=== PATIENT | female | born 1990 | race Caucasian/White ===

== ENCOUNTER 2016-10-16 15:31 | Emergency (ER) | payer OTHER ==
[2016-10-16 18:48] VITALS: BP 130/74
--- NOTE | 2016-10-16 19:25 | UC ---
Throat Pain/Nasal David HPI - HPI Summary HPI Summary: 20 WEEKS , FOR ONE WEEK HAS HAD WORSENING SINUS CONGESTION AND PRESSURE. FEVER YESTERDAY. COUGH AT NIGHT, TEETH HURT FROM FACIAL PAIN. WORSE THE LAST 3 DAYS - History of Current Complaint Chief Complaint: UCRespiratory Stated Complaint: SINUSES Time Seen by Provider: 10/16/16 18:44 Hx Obtained From: Patient Hx Last Menstrual Period: 05/13/16 Onset/Duration: Gradual Onset, Lasting Weeks, Worse Since - 3 DAYS Severity: Moderate Pain Intensity: 6 Pain Scale Used: 0-10 Numeric Cough: Nonproductive Associated Signs & Symptoms: Positive: Sinus Discomfort, Nasal Discharge, Fever - Allergies/Home Medications Allergies/Adverse Reactions: Allergies Allergy/AdvReac Type Severity Reaction Status Date / Time No Known Allergies Allergy Verified 10/16/16 18:22 Home Medications: Home Medications Acetaminophen TAB* [Tylenol TAB*] 650 mg PO Q4H PRN 10/16/16 [History Confirmed 10/16/16] Calcium Carbonate CHEW TAB* [Tums*] 500 mg PO BID PRN 10/16/16 [History Confirmed 10/16/16] Vitamin [Calna] 1 tab PO DAILY 10/16/16 [History Confirmed 10/16/16] PMH/Surg Hx/FS Hx/Imm Hx Previously Healthy: Yes - Surgical History Surgical History: Yes Surgery Procedure, Year, and Place: T&A. - Family History Known Family History: Negative: Respiratory Disease - Social History Occupation: Employed Full-time Lives: With Family Alcohol Use: None Substance Use Type: None Smoking Status (MU): Never Smoked Tobacco Review of Systems Constitutional: Fever, Chills Skin: Negative Eyes: Negative ENT: Nasal Discharge Respiratory: Cough Cardiovascular: Negative Gastrointestinal: Negative Genitourinary: Negative Motor: Negative Neurovascular: Negative Musculoskeletal: Negative Neurological: Negative Psychological: Negative All Other Systems Reviewed And Are Negative: Yes Physical Exam Triage Information Reviewed: Yes Appearance: Well-Appearing, No Pain Distress, Well-Nourished Vital Signs: Initial Vital Signs Temp 97.9 F 10/16/16 18:24 Pulse 97 10/16/16 18:24 Resp 18 10/16/16 18:24 BP 130/74 10/16/16 18:24 Pulse Ox 100 10/16/16 18:24 Vital Signs Reviewed: Yes Eye Exam: Normal ENT: Positive: Hearing grossly normal, Pharynx normal, Nasal congestion, TM bulging, TM dull Dental Exam: Normal Neck exam: Normal Neck: Positive: Supple, Nontender, No Lymphadenopathy Respiratory Exam: Normal Respiratory: Positive: Chest non-tender, Lungs clear, Normal breath sounds, No respiratory distress, No accessory muscle use Cardiovascular Exam: Normal Cardiovascular: Positive: RRR, No Murmur, Pulses Normal, Brisk Capillary Refill Abdominal Exam: Normal Abdomen Description: Positive: Nontender, No Organomegaly Musculoskeletal Exam: Normal Musculoskeletal: Positive: Strength Intact, ROM Intact Neurological Exam: Normal Psychological Exam: Normal Psychological: Positive: Normal Response To Family Skin Exam: Normal Throat Pain/Nasal Course/Dx - Differential Dx/Diagnosis Differential Diagnosis/HQI/PQRI: Influenza, Laryngitis, Sinusitis, URI Provider Diagnoses: SINUSITIS Discharge - Discharge Plan Condition: Stable Disposition: HOME Prescriptions: Amoxicillin/Clavulanate TAB* [Augmentin TAB 875*] 875 mg PO BID #20 tab Patient Education Materials: Sinusitis (ED) Forms: *Work Release
== END 2016-10-16 19:18 | disposition home or self-care (01) ==
LOC: UCCORT 15:31
DX: O26.892 Other specified pregnancy related conditions, second trimester (principal); Z3A.22 22 weeks gestation of pregnancy; J32.9 Chronic sinusitis, unspecified
CPT/HCPCS: 99212; G0463

== ENCOUNTER 2017-04-24 14:11 | Emergency (ER) | payer OTHER ==
[2017-04-24 15:23] VITALS: BP 142/81
--- NOTE | 2017-04-24 15:57 | UC ---
Breast Complaint - HPI Summary HPI Summary: Pt presents to [facility] with her 3month son. Pt is breast feeding. States x 3 days increase pain at nipple. Pain only with touch, feeding and pumping. Pt states feels like "shards of glass" Pt states nipple slightly red. no breast pain, no breast firmness or erythema. Pt states son has not been latching as well and she noted "white stuff" on his tongue today. Pt did pump - less milk than normal, but pain. No fevers, chills, rash. No cp, sob. No other complaints. No analgesia taken. No warm soaks applied. no complications no abx medications reviewed this visit - pre- - History of Current Complaint Hx Obtained From: Patient Breast Chief Complaint: Pain, Nipple, Right Onset/Duration: Started Days Ago Timing: Lasting Minutes Breast Pain Aggravating Factors: Breast Feeding, Palpation - no pain at rest or untouchged Breast Pain Alleviating Factors: Nothing - nothing taken, applied Breast Associated Signs/Symptoms: Negative - Allergy/Home Medications Allergies/Adverse Reactions: Allergies Allergy/AdvReac Type Severity Reaction Status Date / Time No Known Allergies Allergy Verified 04/24/17 15:20 PMH/Surg Hx/FS Hx/Imm Hx Previously Healthy: Yes - Surgical History Surgical History: Yes Surgery Procedure, Year, and Place: T&A. - Family History Known Family History: Negative: Respiratory Disease - Social History Lives: With Family Alcohol Use: None Substance Use Type: None Smoking Status (MU): Never Smoked Tobacco Review of Systems Constitutional: Negative Skin: Other - right nipple pain with touch, breast feeding Eyes: Negative ENT: Negative Respiratory: Negative Cardiovascular: Negative Gastrointestinal: Negative Genitourinary: Negative Motor: Negative Neurovascular: Negative Musculoskeletal: Negative Neurological: Negative Psychological: Negative All Other Systems Reviewed And Are Negative: Yes Physical Exam Triage Information Reviewed: Yes Completion Of Physical Exam Limited Due To: Altered Mental Status Appearance: Well-Appearing, No Pain Distress, Well-Nourished Vital Signs: Initial Vital Signs Temp 98.4 F 04/24/17 15:17 Pulse 88 04/24/17 15:17 Resp 16 04/24/17 15:17 BP 142/81 04/24/17 15:17 Pulse Ox 100 04/24/17 15:17 Vital Signs Reviewed: Yes Eye Exam: Normal Eyes: Positive: Conjunctiva Clear ENT Exam: Normal ENT: Positive: Normal ENT inspection, Hearing grossly normal, Pharynx normal, TMs normal Dental Exam: Normal Neck exam: Normal Neck: Positive: Supple, Nontender, No Lymphadenopathy Respiratory Exam: Normal Respiratory: Positive: Chest non-tender, Lungs clear, Normal breath sounds, No respiratory distress, No accessory muscle use Cardiovascular Exam: Normal Cardiovascular: Positive: RRR, No Murmur, Pulses Normal Abdominal Exam: Normal Abdomen Description: Positive: Nontender, No Organomegaly, Soft Bowel Sounds: Positive: Present Musculoskeletal Exam: Normal Neurological Exam: Normal Psychological Exam: Normal Skin: Positive: Other - right breast: no breast tissue tenderness, no erythema of breast, no tenderness pt with dry, shiny right nipple. No edema + TTP No drainage no bleeding no mass right nipple increased erythema compared to left Breast Pain Course/Dx - Course Course Of Treatment: Pt with right nipple pain with touch and breast feeding. No pain at rest. No other sx 3 month old present at exam with + oral thrush. recommend topical miconazole - remove visible cream before breast feeding. warm packs - thorough dry. monitor for signs of infection. APAP. locator specialist f/u. return precaution discussed - Diagnoses Provider Diagnoses: Candidiasis of breast Discharge - Discharge Plan Condition: Stable Disposition: HOME Prescriptions: Miconazole TOPICAL CREAM 2%* [Monistat 2%*] 1 applic TOPICAL BID #1 tube Patient Education Materials: Skin Yeast Infection (ED) Referrals: No Primary Care Phys,NOPCP [Primary Care Provider] - Additional Instructions: apply ointment 2 times a day for 10 days wipe excess cream of your nipple before breast feeding okay to apply moist, warm heat to your breast - make sure to pat dry completely stay well hydrated - drink plenty of non-alcoholic, non-caffinated beverages Okay to take tylenol every 6-8 hours for pain Contact your locator specialist doctor to schedule a follow-up appointment this week. Contact your locator specialist or return with increased pain, reddness, firmness to your nipple, fever or other questions or concerns
== END 2017-04-24 16:09 | disposition home or self-care (01) ==
LOC: UCCORT 14:11
DX: B37.2 Candidiasis of skin and nail (principal)
CPT/HCPCS: 99212; G0463

== ENCOUNTER 2017-06-16 08:57 | Emergency (ER) | payer OTHER ==
[2017-06-16 09:44] VITALS: BP 135/84
--- NOTE | 2017-06-16 10:22 | UC ---
Eye Complaint HPI - HPI Summary HPI Summary: bilateral eye redness and discharge no cold sx - History of Current Complaint Chief Complaint: UCEye Stated Complaint: EYE COMPLAINT Time Seen by Provider: 06/16/17 09:53 Hx Obtained From: Patient Hx Last Menstrual Period: unknown, gave 5 months ago Onset/Duration: Gradual Onset, Lasting Days - 1, Still Present Timing: Constant Severity Initially: Moderate Severity Currently: Moderate Pain Intensity: 0 Pain Scale Used: 0-10 Numeric Location of Injury: Conjunctiva Associated Signs And Symptoms: Positive: Drainage (Clear), Drainage (Purulent). Negative: Photophobia, Vision Impairment Bilateral, Vision Impairment Right, Vision Impairment Left, Fever, Swelling - Allergies/Home Medications Allergies/Adverse Reactions: Allergies Allergy/AdvReac Type Severity Reaction Status Date / Time No Known Allergies Allergy Verified 06/16/17 09:43 Home Medications: Home Medications Docosahexaenoic Acid [ Dha] 200 mg PO DAILY 06/16/17 [History Confirmed 06/16/17] Labetalol TAB* [Trandate TAB*] 100 mg PO BID 06/16/17 [History Confirmed ] PMH/Surg Hx/FS Hx/Imm Hx Previously Healthy: Yes - Surgical History Surgical History: Yes Surgery Procedure, Year, and Place: T&A. - Family History Known Family History: Negative: Respiratory Disease - Social History Alcohol Use: None Substance Use Type: None Smoking Status (MU): Never Smoked Tobacco - Immunization History Most Recent Influenza Vaccination: no Review of Systems Constitutional: Negative Skin: Negative Eyes: Drainage, Eye Redness ENT: Negative Respiratory: Negative Cardiovascular: Negative Gastrointestinal: Negative Is Patient Immunocompromised?: No All Other Systems Reviewed And Are Negative: Yes Physical Exam Triage Information Reviewed: Yes Appearance: Well-Appearing, No Pain Distress, Well-Nourished Vital Signs: Initial Vital Signs Temp 97.7 F 06/16/17 09:40 Pulse 64 06/16/17 09:40 Resp 14 06/16/17 09:40 BP 135/84 06/16/17 09:40 Pulse Ox 99 06/16/17 09:40 Vital Signs Reviewed: Yes Eyes: Positive: Conjunctiva Inflamed, Discharge ENT: Positive: Normal ENT inspection, Hearing grossly normal, Pharynx normal Neck: Positive: Supple, Nontender, No Lymphadenopathy Respiratory: Positive: Chest non-tender, Lungs clear, Normal breath sounds Cardiovascular: Positive: RRR, No Murmur, Pulses Normal Eye Complaint Course/Dx - Differential Dx/Diagnosis Provider Diagnoses: conjunctivitis Discharge - Discharge Plan Condition: Stable Disposition: HOME Prescriptions: Tobramycin 0.3% OPHTH.GAGE* 1 drop BOTH EYES Q4H #1 btl Patient Education Materials: Conjunctivitis (ED) Referrals: No Primary Care Phys,NOPCP [Primary Care Provider] - 5 Days
== END 2017-06-16 10:02 | disposition home or self-care (01) ==
LOC: UCCORT 08:57
DX: H10.9 Unspecified conjunctivitis (principal)
CPT/HCPCS: 99212; G0463

== ENCOUNTER 2017-12-20 08:59 | Emergency (ER) | payer OTHER ==
[2017-12-20 09:37] VITALS: BP 145/90
--- NOTE | 2017-12-20 09:52 | UC ---
Throat Pain/Nasal David HPI - HPI Summary HPI Summary: 26 year old female with sore throat. Has history of strep. Having for 1 day. Had strep last month and treated. never changed toothbrush. 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 has had strep in the past and feels this is the same . - History of Current Complaint Chief Complaint: UCRespiratory Stated Complaint: SORE THROAT Time Seen by Provider: 12/20/17 09:38 Hx Obtained From: Patient Hx Last Menstrual Period: 12/20/17 Pain Intensity: 9 - Allergies/Home Medications Allergies/Adverse Reactions: Allergies Allergy/AdvReac Type Severity Reaction Status Date / Time No Known Allergies Allergy Verified 12/20/17 09:30 PMH/Surg Hx/FS Hx/Imm Hx Previously Healthy: Yes - Surgical History Surgical History: Yes Surgery Procedure, Year, and Place: T&A. 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 Lives: With Family Alcohol Use: None Substance Use Type: None Smoking Status (MU): Never Smoked Tobacco - Immunization History Most Recent Influenza Vaccination: no Review of Systems ENT: Sore Throat Is Patient Immunocompromised?: No All Other Systems Reviewed And Are Negative: Yes Physical Exam Triage Information Reviewed: Yes Appearance: Well-Appearing, No Pain Distress, Well-Nourished Vital Signs: Initial Vital Signs Temp 99.2 F 12/20/17 09:31 Pulse 85 12/20/17 09:31 Resp 18 12/20/17 09:31 BP 145/90 12/20/17 09:31 Pulse Ox 100 12/20/17 09:31 Vital Signs Reviewed: Yes Eye Exam: Normal ENT: Positive: Hearing grossly normal, Pharyngeal erythema. Negative: Tonsillar exudate Neck exam: Normal Respiratory Exam: Normal Cardiovascular Exam: Normal Musculoskeletal Exam: Normal Neurological Exam: Normal Psychological Exam: Normal Skin Exam: Normal Throat Pain/Nasal Course/Dx - Course Course Of Treatment: Based on previous history strep, not changing toothbruch, multiple exposures and her request to be treated its no unreasonable to start treatment, change toothbrush, consider probiotics, RTO if any concerns, - Differential Dx/Diagnosis Differential Diagnosis/HQI/PQRI: Peritonsillar Abscess, Pharyngitis, Tonsillitis , URI Provider Diagnoses: strep Pharyngitis Discharge - Sign-Out/Discharge Documenting (check all that apply): Discharge - Discharge Plan Condition: Good Disposition: HOME Prescriptions: Amoxicillin PO (*) [Amoxicillin 500 MG CAP*] 500 mg PO Q12H 10 Days #20 cap Patient Education Materials: Pharyngitis (ED) Referrals: No Primary Care Phys,NOPCP [Primary Care Provider] - 4 Days Additional Instructions: You had a negative strep test but based on your recent exposure, current symptoms we will start treatment. - Billing Disposition and Condition Condition: GOOD Disposition: HOME
== END 2017-12-20 10:04 | disposition home or self-care (01) ==
LOC: UCCORT 08:59
DX: J02.0 Streptococcal pharyngitis (principal); Z20.89 Contact with and (suspected) exposure to other communicable diseases
CPT/HCPCS: 87651; 99212; G0463

== ENCOUNTER 2018-09-16 13:55 | Emergency (ER) | payer OTHER ==
--- NOTE | 2018-09-16 15:35 | UC ---
UC General HPI - HPI Summary HPI Summary: pt c/o fever, bodyaches, sore throat, headache and n/v x 3 yesterday then twice today. no cough, sob, diarrhea or dysuria. - History of Current Complaint Chief Complaint: UCGeneralIllness Stated Complaint: FEVER, CHILLS, ACHEY Time Seen by Provider: 09/16/18 15:27 Hx Last Menstrual Period: 12/20/17 Pain Intensity: 3 - Allergy/Home Medications Allergies/Adverse Reactions: Allergies Allergy/AdvReac Type Severity Reaction Status Date / Time No Known Allergies Allergy Verified 12/20/17 09:30 Home Medications: Home Medications Acetaminophen ADULT LIQ* [Tylenol ADULT LIQ*] 650 mg PO ONCE 09/16/18 [History Confirmed 09/16/18] PMH/Surg Hx/FS Hx/Imm Hx Previously Healthy: Yes - Surgical History Surgical History: Yes Surgery Procedure, Year, and Place: T&A. x2. WISDOM TEETH - Family History Known Family History: Negative: Respiratory Disease - Social History Lives: With Family Alcohol Use: None Substance Use Type: None Smoking Status (MU): Never Smoked Tobacco - Immunization History Most Recent Influenza Vaccination: no Review of Systems All Other Systems Reviewed And Are Negative: No Skin: Negative: Rash Eyes: Negative: Drainage ENT: Negative: Nasal Discharge, Sinus Pain/Tenderness Respiratory: Negative: Shortness Of Breath, Cough Gastrointestinal: Negative: Abdominal Pain, Diarrhea Genitourinary: Negative: Dysuria Neurological: Positive: Headache Is Patient Immunocompromised?: No Physical Exam Triage Information Reviewed: Yes Appearance: Well-Appearing Vital Signs: Initial Vital Signs Temp 100.1 F 09/16/18 14:13 Pulse 102 09/16/18 14:13 Resp 16 09/16/18 14:13 BP 165/83 09/16/18 14:13 Pulse Ox 100 09/16/18 14:13 Vital Signs Reviewed: Yes Eyes: Positive: Conjunctiva Clear ENT: Positive: Pharyngeal erythema - MILD, TMs normal, Uvula midline. Negative : Nasal congestion, Trismus, Muffled voice, Hoarse voice, Sinus tenderness Neck: Positive: Supple, Nontender, Enlarged Nodes @ - PERITOSILAR NODES Respiratory: Positive: Lungs clear, Normal breath sounds, No respiratory distress Cardiovascular: Positive: No Murmur, Tachycardia - 112 Abdomen Description: Positive: Nontender, No Organomegaly, Soft. Negative: Distended, Guarding Bowel Sounds: Positive: Present Musculoskeletal: Positive: ROM Intact Neurological: Positive: Alert Psychological: Positive: Age Appropriate Behavior Skin Exam: Normal Skin: Negative: Rashes Diagnostics - Laboratory Diagnostic Studies Completed/Ordered: rapid flu and strep are negative. Re-Evaluation - Re-Evaluation First Eval Re-Evaluation Time: 16:20 Change: Unchanged - pt states feels same. iv fluids offered but pt declined. resting HR 112-119. will give motrin and pt wishes to try po fluids. Second Eval Re-Evaluation Time: 16:32 Change: Improved - pt states fluids are staying down and wants d/c to home. her called and he needs to leave, pt needs to be there to watch her children. Course/Dx - Course Course Of Treatment: NON TOXIC, NO ACUTE ABDOMEN. RAPID STREP/FLU ARE NEGATIVE. NO CONCERN FOR PNEUMONIA. IV FLUIDS DECLINED BY PT. PT WAS ABLE TO DRINK MOST OF 500ML BOTTLE WATER AFTER THE ZOFRAN WITH NO VOMITING. PT REQUESTING D/C TO HOME DESPITE NON RESOLUTION OF HER TACHYCARDIA. SHE DOES AGREE TO CLOSE F/U AND GO TO ER FOR ANY WORSENING. - Diagnoses Provider Diagnosis: Influenza-like illness Discharge - Sign-Out/Discharge Documenting (check all that apply): Patient Departure All imaging exams completed and their final reports reviewed: No Studies - Discharge Plan Condition: Stable Disposition: HOME Patient Education Materials: Influenza (DC) Additional Instructions: FOLLOW UP WITH YOUR PRIMARY CARE AT [facility] IN 2-3 DAYS FOR A RECHECK. GO TO ER FOR ANY WORSENING - Billing Disposition and Condition Condition: STABLE Disposition: Home
[2018-09-16] MEDS ORDERED: Ondansetron ODT TAB* 4 MG PO ONE (15:40)
[2018-09-16 16:16] VITALS: BP 145/1
[2018-09-16] MEDS ORDERED: Ibuprofen ADULT LIQ* 600 MG/30 ML UDC PO ONE (16:24)
== END 2018-09-16 16:39 | disposition home or self-care (01) ==
LOC: UCCORT 13:55
DX: J11.1 Influenza due to unidentified influenza virus with other respiratory manifestations (principal)
CPT/HCPCS: 87651; 99212; A9270-GY; G0463

== ENCOUNTER 2019-04-07 09:34 | Emergency (ER) | payer OTHER ==
[2019-04-07 09:55] VITALS: BP 172/91
--- NOTE | 2019-04-07 10:35 | UC ---
Complaint Female HPI - HPI Summary HPI Summary: Pt presents with c/o sudden onset of urinary frequency that began 2 days ago. Denies dysuria. Did not small/scant amount of "red tinge" to urine this morning. - History Of Current Complaint Chief Complaint: UCGU Stated Complaint: URINARY COMPLAINT Time Seen by Provider: 04/07/19 09:53 Hx Obtained From: Patient Hx Last Menstrual Period: 03/24/19 ?: No Onset/Duration: Sudden Onset, Lasting Days, Still Present Timing: Constant Severity Initially: Mild Severity Currently: Mild Pain Intensity: 0 Character: Not Applicable Aggravating Factor(s): Urination Alleviating Factor(s): Nothing Associated Signs And Symptoms: Positive: Negative - Risk Factors Ectopic Risk Factor: Negative Ovarian Torsion Risk Factor: Reproductive Age - Allergies/Home Medications Allergies/Adverse Reactions: Allergies Allergy/AdvReac Type Severity Reaction Status Date / Time No Known Allergies Allergy Verified 04/07/19 09:58 Home Medications: Home Medications Escitalopram * [Lexapro *] 1 dose PO DAILY 04/07/19 [History Confirmed 04/07/19] Metoprolol Succinate XL TAB* [Toprol XL TAB*] 25 mg PO DAILY 04/07/19 [History Confirmed 04/07/19] PMH/Surg Hx/FS Hx/Imm Hx Previously Healthy: Yes - Surgical History Surgical History: Yes Surgery Procedure, Year, and Place: T&A. x2. WISDOM TEETH - Family History Known Family History: Negative: Respiratory Disease - Social History Occupation: Employed Full-time Lives: With Family Alcohol Use: Occasionally Substance Use Type: None Smoking Status (MU): Never Smoked Tobacco Have You Smoked in the Last Year: No - Immunization History Most Recent Influenza Vaccination: no Vaccination Up to Date: Yes Review of Systems All Other Systems Reviewed And Are Negative: Yes Constitutional: Positive: Negative Skin: Positive: Negative Eyes: Positive: Negative ENT: Positive: Negative Respiratory: Positive: Negative Cardiovascular: Positive: Negative Gastrointestinal: Positive: Negative Genitourinary: Positive: Frequency, Urgency Motor: Positive: Negative Neurovascular: Positive: Negative Musculoskeletal: Positive: Negative Neurological: Positive: Negative Psychological: Positive: Negative Is Patient Immunocompromised?: No Physical Exam Triage Information Reviewed: Yes Appearance: Well-Appearing Vital Signs: Initial Vital Signs Temp 98.1 F 04/07/19 09:49 Pulse 57 04/07/19 09:49 Resp 16 07/22/19 09:49 BP 172/91 04/07/19 09:49 Pulse Ox 100 04/07/19 09:49 Vital Signs Reviewed: Yes Eye Exam: Normal ENT Exam: Normal Dental Exam: Normal Neck exam: Normal Respiratory Exam: Normal Cardiovascular Exam: Normal Abdominal Exam: Normal Abdomen Description: Positive: Nontender Musculoskeletal Exam: Normal Neurological Exam: Normal Psychological Exam: Normal Skin Exam: Normal Complaint Female Dx - Course Course Of Treatment: I discussed the the UA results. Pt denies any hx of DM or Gestational DM. Pt reports that she drank coffee with sweetened creamer this morning and that its all she had. - Differential Dx/Diagnosis Differential Diagnosis/HQI/PQRI: Urinary Tract Infection Provider Diagnosis: Urinary frequency Discharge - Sign-Out/Discharge Documenting (check all that apply): Patient Departure All imaging exams completed and their final reports reviewed: No Studies - Discharge Plan Condition: Stable Disposition: HOME Patient Education Materials: Urinary Urgency and Frequency (DC) Referrals: [facility] [place] [facility] [place]] No Primary Care Phys,NOPCP [Primary Care Provider] - - Billing Disposition and Condition Condition: STABLE Disposition: Home
== END 2019-04-07 10:38 | disposition home or self-care (01) ==
LOC: UCCORT 09:34
DX: R35.0 Frequency of micturition (principal)
CPT/HCPCS: 81003; 84702; 99211; G0463